=== PATIENT | male | born 1980 | race Two or more races ===

== ENCOUNTER → 2023-08-29 08:18 | Outpatient (REF) | payer BC, SELFPAY | LOC: RAD 08:18 | PROVIDERS: ATTENDING PHYSICIAN Surgery; FAMILY PHYSICIAN Family Medicine | DX: K80.50 Calculus of bile duct without cholangitis or cholecystitis without obstruction (principal) | CPT/HCPCS: 78227; A9537; J2805 ==

== ENCOUNTER 2023-09-18 06:52 | Day surgery (SDC) | payer BC, SELFPAY ==
[2023-09-18] VITALS (12 sets, daily range): BP systolic 108–148; BP diastolic 67–99; BMI 28.3
[2023-09-18] MEDS: NORMOSOL-R 1000 IV (11:20)
[2023-09-18] MEDS: IC GREEN 2.5 MG IV (11:21)
[2023-09-18] MEDS: TYLENOL 1000 MG PO (11:21)
[2023-09-18] MEDS: TRANSDERM-SCOP 1 PATCH TRANSDERM (11:37)
--- NOTE | 2023-09-18 11:48 | PTCARENOTE ---
Patients insisting that she bring in patients service dog. Service dog in bed with patient. Stone Unloader aware. Will monitor patient.
--- NOTE | 2023-09-18 12:43 | W.IMMPOSTOP ---
Surgical Immed Post Op Note
-
Primary Surgeon: Dane
Assisting: Gordo MCKEE
Pre-op Diagnosis: Biliary colic
Post-op Diagnosis: Chronic cholecystitis
Procedure Performed: Robot assisted laparoscopic cholecystectomy
Anesthesia Type: GETA
Specimen / Cultures: Gallbladder
Estimated Blood Loss: 4cc
Complications: None immediate
Operative Findings: Mildly contracted gallbladder with moderate omental adhesions, thickened wall, posterior plane obliterated by fibrosis; cystic artery: bipolar; cystic duct: locking clips; critical view obtained
--- NOTE | 2023-09-18 12:45 | OR.RPT ---
Operative Report
Operative Report
Primary Surgeon: Dane
Assisting: Gordo MCKEE
Pre-op Diagnosis: Biliary colic
Post-op Diagnosis: Chronic cholecystitis
Procedure Performed: Robot assisted laparoscopic cholecystectomy
Anesthesia Type: GETA
Specimen / Cultures: Gallbladder
Estimated Blood Loss: 4cc
Complications: None immediate
Operative Findings: Mildly contracted gallbladder with moderate omental adhesions, thickened wall, posterior plane obliterated by fibrosis; cystic artery: bipolar; cystic duct: locking clips; critical view obtained
Date of Surgery:� 09/18/23
Indications: This 42M developed right upper quadrant pain with radiation around his flank to his back. Work-up showed normal liver enzymes and no ductal dilation. No stones were identified on ultrasound or computed tomography. A HIDA scan was noted
to have a normal ejection fraction. We discussed at length the lack of definitive findings on imaging to confirm gallstones, however given how consistent his history is with biliary colic, I suspect strongly he has stones that we simply are not able
to see on imaging. We discussed that his pain may not improve after surgery if the gallbladder is not causing the pain and he verbalized understanding and agreed to proceed. Laparoscopic cholecystectomy with robotic assist was elected.
Description of procedure: The patient was placed on the operating table in the supine position. General anesthesia was induced. A time-out was completed verifying correct patient, procedure, site, positioning, and special equipment prior to
beginning this procedure. An orogastric tube was placed. The abdomen was prepped and draped in the usual sterile fashion. A stab incision was made in left upper quadrant and the Veress needle was inserted. Proper position was confirmed by aspiration
and saline meniscus test. The abdomen was insufflated with carbon dioxide to a pressure of 12mmHg. The patient tolerated insufflation well.
A 8mm trocar was then inserted above the umbilicus. The laparoscope was inserted and the abdomen inspected. No injuries from initial trocar placement or Veress needle insertion were noted. Additional 8mm trocars were then inserted in the following
locations: two in the right lower quadrant and to the left of the umbilicus and just above. The abdomen was inspected and no abnormalities were found. The table was placed in the reverse Trendelenburg position with the right side up. The dome of the
gallbladder was grasped with an atraumatic grasper and retracted over the dome of the liver. The infundibulum was then grasped with an atraumatic grasper and retracted toward the right lower quadrant. This maneuver exposed Calot�s triangle. The
peritoneum overlying the gallbladder infundibulum was then incised and the cystic duct and cystic artery identified and circumferentially dissected so that a clear view of the liver was achieved through a window between the cystic duct an cystic
artery. At this time, the only two structures going into the gallbladder were the cystic artery and cystic duct. The CBD was identified with ICG and protected.
The cystic duct was then doubly clipped and divided. The cystic artery was controlled with bipolar and divided. The gallbladder was then dissected from its peritoneal attachments by electrocautery. The gallbladder was removed using an endoscopic
retrieval bag placed through the umbilical port. The gallbladder was passed off the table as a specimen. The gallbladder fossa was closely inspected. There was no evidence of bleeding from the gallbladder fossa or cystic artery or leakage of the
bile from the cystic duct stump. The umbilical trocar site was closed at the fascial level with 2-0 PDS. Secondary trocars were removed under direct vision and noted to be hemostatic. The abdomen was allowed to collapse. The skin was closed with
subcuticular sutures of 4-0 monocryl and topical skin adhesive. The orogastric tube was removed.
The patient tolerated the procedure well and was taken to the postanesthesia care unit in stable condition.
The assistance of Gordo KEITH was required due to the complexity of the procedure. During the procedure she assisted with retraction, resection, and closure of the wound.
[2023-09-18] MEDS: DILAUDID 0.25 MG IV ×2 (13:36→13:58)
[2023-09-18] MEDS: ROXICODONE 5 MG PO (15:05)
[2023-09-18] MEDS: ZOFRAN 4 MG IV (15:41)
== END 2023-09-18 16:25 | disposition home or self-care (01) ==
LOC: SDS 06:52
PROVIDERS: ATTENDING PHYSICIAN Surgery
DX: K81.1 Chronic cholecystitis (principal)
CPT/HCPCS: 47562; 88304

== ENCOUNTER 2023-10-01 12:08 | Emergency (ER) | payer BC, SELFPAY ==
[2023-10-01 12:14] VITALS: BP 130/84
[2023-10-01] MEDS: NSS 1000 IV (13:26)
[2023-10-01] MEDS: ZOFRAN 4 MG IV (13:29)
[2023-10-01] MEDS: TORADOL 15 MG IV (13:29)
[2023-10-01 13:38] LABS: % Eosinophils 8.1 % (0-6); % Immature Granulocytes 0.2 % (0-0.5); % Lymphocytes 42.9 % (20.5-51.1); % Monocytes 5.3 % (1.7-9.3); % Neutrophils 41.5 % (42.2-75.2); Absolute Basophils 0.1 10^3/uL (0-0.2); Absolute Eosinophils 0.5 10^3/uL (0-0.7); Absolute Lymphocytes 2.6 10^3/uL (1.2-3.4); Absolute Monocytes 0.3 10^3/uL (0.1-0.6); Absolute Neutrophils 2.5 10^3/uL (1.4-6.5); Hematocrit 42.2 % (39.0-52.0); Hemoglobin 14.7 g/dL (13.0-18.0); Mean Corp Hgb Conc. 34.8 g/dL (33.0-37.0); Mean Corpuscular Hgb 27.3 pg (27.0-31.0); Mean Corpuscular Volume 78.4 fL (80.0-94.0); Mean Platelet Volume 11.7 fL (7.4-10.4); Nucleated Red Blood Cells % 0 % (-); Platelet Count 182 10^3/uL (130-400); Red Blood Cell Count 5.38 10^6/uL (4.70-6.10); Red Cell Dist. Width 12.6 % (11.5-14.5)
[2023-10-01 13:47] LABS: ALT (SGPT) 23 U/L (0-50); AST (SGOT) 20 U/L (17-59); Albumin 4.7 g/dl (3.5-5.0); Alkaline Phosphatase 80 U/L (38-126); Blood Urea Nitrogen 12 mg/dl (9-20); Calcium 10.2 mg/dl (8.4-10.2); Carbon Dioxide 27 mmol/L (22-30); Chloride 107 mmol/L (98-107); Glucose 101 mg/dl (70-99); Lipase 133 U/L (23-300); Potassium 4.5 mmol/L (3.5-5.1); Sodium 139 mmol/L (135-145); Total Bilirubin 0.4 mg/dl (0.2-1.3); Total Protein 6.9 g/dl (6.3-8.2); eGFR > 60.00
--- NOTE | 2023-10-01 13:49 | ED.GENMED ---
History of Present Illness
General
Chief Complaint: Post Operative Problem(s)
Source: patient
Exam Limitations: none
Time Seen by Provider: 10/01/23 13:00
Nursing documentation reviewed up to this point in time: agreed with
History of Present Illness
History of Present Illness:
42-year-old male with past medical history of GERD and anemia presenting to the emergency department today with concerns of ongoing abdominal discomfort over the past 2 weeks after gallbladder removal 2 weeks ago. Has noticed sweatiness subjective
fever. Feels like his stomach is boiling. Also incision site seem to be pain and uncomfortable without obvious redness or warmth
Review of Systems
Review of Systems
Allergies reviewed?: Yes
All Other Systems: ROS reviewed and negative except as documented in HPI and ROS
Phy Exam
Physical Exam
Physical Exam:
GENERAL: Alert , in no apparent distress
EYE: pupils equal and reactive
NECK: Supple, no significant adenopathy.
ENT: o/p clr, mmm.
CARDIAC: Regular rate and rhythm .
LUNGS: Clear breath sounds bilaterally, no acute respiratory distress, no wheezes/rales/rhonchi
ABDOMEN: Mild diffuse abdominal pain palpation no redness or warmth no induration or fluctuance
NEUROLOGICAL: Alert and oriented, no focal neuro deficits
SKIN: Warm and dry, skin intact.
MUSCULOSKELETAL: No edema, well perfused.
PSYCH: Normal and appropriate interaction.
Course
Orders/Labs/Results
Orders:
Orders
10/01/23 13:15
0.9% Sodium Chloride 1000 ml [Nss] 1,000 ml IV BOLUS
Ketorolac [Toradol] 15 mg IV NOW STA
Ondansetron Injectable [Zofran] 4 mg IV NOW STA
10/01/23 13:16
CT Abd/Pel (IV only)-DH only Urgent
Comment:
Reason For Exam: right abd pain
10/01/23 13:26
Complete Blood Count/With Diff Urgent
Comprehensive Metabolic Panel Urgent
Lipase Urgent
10/01/23 15:54
Urinalysis Reflex To Culture Urgent
Date Specimen was Collected: 10/01/23
Time Specimen was Collected: 15:50
Abnormal Lab Results
10/01/23
13:26
MCV 78.4 L fL
(80.0-94.0)
MPV 11.7 H fL
(7.4-10.4)
Neutrophils % 41.5 L %
(42.2-75.2)
Eosinophils % 8.1 H %
(0-6)
Glucose 101 H mg/dl
(70-99)
10/01/23 13:26
10/01/23 13:26
Vital Signs
Initial and Last Documented VS:
Initial Vital Signs
Temp Pulse Resp BP Pulse Ox
99.0 F 81 16 130/84 96
10/01/23 12:14 10/01/23 12:14 10/01/23 12:14 10/01/23 12:14 10/01/23 12:14
Last Documented Vital Signs
Temp Pulse Resp BP Pulse Ox
99.0 F 68 16 130/84 98
10/01/23 12:14 10/01/23 13:44 10/01/23 12:14 10/01/23 12:14 10/01/23 13:44
MDM/Problems Addressed
MDM/Problems Addressed:
42-year-old male presenting to the emergency department today with concerns of worsening discomfort to his abdomen over the past few days. Had gallbladder removal [address] Vela. Has had nausea no vomiting. No chest pain or shortness
of breath. Vital signs normal at arrival. Labs unremarkable no white count no urinary changes CT scan without emergent findings. No evidence of significant complication was advised for close outpatient follow-up with the surgeon otherwise stable
for discharge.
*Critical Care Note
Total Time (30-74mins, 75-104mins- exclusive of procedures): Not Applicable
ED Attending Note
-
Portions of this chart may have been created with voice recognition software.� Occasional wrong word or��sound alike� substitutions may have occurred due to the inherent limitations of voice recognition software.
Discharge Plan
Departure
Patient Disposition: Home (Routine Discharge)
Date of Disposition: 10/01/23
Time of Disposition: 17:30
Patient with high blood pressure during this ER visit?: No
Condition: Good
Covid-19: Not Applicable
Discharge Problem:
Abdominal pain
Instructions: Postoperative Pain (DC)
Prescriptions:
No Action
multivitamin Tablet
1 tab PO DAILY
ibuprofen [Advil] 200 mg Tablet
400 mg PO Q6H PRN (Reason: pain)
omeprazole
1 cap PO DAILY
Rx Instructions:
unsure of dose
oxycodone 5 mg tablet
5 - 10 mg PO Q4HPRN PRN (Reason: moderate to severe pain) Qty: 20 0RF
Referrals:
Gwendolyn Infante, DO [Family Provider] -
Activity Restrictions/Additional Instructions:
You came to the emergency department today with concerns of ongoing abdominal discomfort. Here you had a reassuring assessment. Please have close with your surgeon. Return to the emergency department any worsening, new or concerning symptoms.
Interventions
Interventions:
*Risk Screen - Suicide Last Done: 10/01/23 12:14
*General Assessment Last Done: 10/01/23 13:46
*Neglect/Abuse Screening Last Done: 10/01/23 12:14
*ED COVID-19 Vaccine History Last Done: 10/01/23 12:14
ED-Skin Assessment Last Done: 10/01/23 13:46
Discharge Date and Time
Print Language: FAROESE
[2023-10-01 16:02] LABS: Urine Albumin Negative (Neg - Trace); Urine Bilirubin Negative (Negative); Urine Character Clear (Clear); Urine Color Yellow; Urine Glucose Negative (Negative); Urine Ketone Negative (Negative); Urine Leukocyte Negative (Negative); Urine Nitrite Negative (Negative); Urine Occult Blood Negative (Negative); Urine Specific Gravity 1.015 (<1.030); Urine Urobilinogen Negative (Neg - 1+)
== END 2023-10-01 17:51 | disposition home or self-care (01) ==
LOC: EMR 12:08
PROVIDERS: Physician Assistant; EMERGENCY PHYSICIAN Emergency Medicine; FAMILY PHYSICIAN Family Medicine
DX: R10.9 Unspecified abdominal pain (principal); R11.0 Nausea; K21.9 Gastro-esophageal reflux disease without esophagitis; Z90.49 Acquired absence of other specified parts of digestive tract; Z98.890 Other specified postprocedural states
CPT/HCPCS: 99285; 96375; 96361; 96374; 74177; 80053; 81003; 83690; 85025; Q9967

== ENCOUNTER → 2024-03-19 17:21 | Outpatient (REF) | payer BC, SELFPAY | LOC: RAD 17:21 | PROVIDERS: ATTENDING PHYSICIAN Surgery; FAMILY PHYSICIAN Family Medicine | DX: R10.31 Right lower quadrant pain (principal) | CPT/HCPCS: 74177; Q9967 ==

== ENCOUNTER 2024-04-23 06:27 | Day surgery (SDC) | payer BC, SELFPAY | END 2024-04-23 10:42 | disposition home or self-care (01) | LOC: GI 06:27 | PROVIDERS: ATTENDING PHYSICIAN Internal Medicine | DX: R10.31 Right lower quadrant pain (principal); R10.11 Right upper quadrant pain; R93.3 Abnormal findings on diagnostic imaging of other parts of digestive tract; K64.8 Other hemorrhoids; K58.9 Irritable bowel syndrome, unspecified | CPT/HCPCS: 45380; 88305 ==

== ENCOUNTER → 2024-05-23 07:23 | Outpatient (REF) | payer BC, SELFPAY | LOC: RAD 07:23 | PROVIDERS: ATTENDING PHYSICIAN Family Medicine | DX: K40.20 Bilateral inguinal hernia, without obstruction or gangrene, not specified as recurrent (principal); R10.31 Right lower quadrant pain | CPT/HCPCS: 74177; Q9967 ==

== ENCOUNTER → 2024-06-28 10:11 | Outpatient (REF) | payer BC, SELFPAY | LOC: MRI 3T 10:11 | PROVIDERS: ATTENDING PHYSICIAN Internal Medicine | DX: R93.3 Abnormal findings on diagnostic imaging of other parts of digestive tract (principal); R10.31 Right lower quadrant pain; K50.80 Crohn's disease of both small and large intestine without complications | CPT/HCPCS: 72197; 74183; A9575 ==

== ENCOUNTER 2024-11-24 20:02 | Emergency (ER) | payer BC, SELFPAY ==
[2024-11-24 20:04] VITALS: BP 134/92
--- NOTE | 2024-11-24 20:59 | ED.GENMED ---
History of Present Illness
General
Chief Complaint: Abdominal Symptoms
Source: patient
Time Seen by Provider: 11/24/24 20:28
History of Present Illness
History of Present Illness:
This patient is a 43-year-old male presents emergency department with reported right lower quadrant pain that has had for a year. He has had an extensive workup with a GI specialist including MRI, colonoscopy, EGD, and capsule studies without
specific etiology isolated. In addition, he notes that in October he was noted to have increased LFTs and was told to discontinue the colchicine that he takes for MF. He does not know the specific reason for that elevation however. He states
that in addition to the usual right lower quadrant pain he also is having discomfort in the right upper quadrant. He then noted discomfort over the last couple of days it is also in the right mid back area. Last night this radiate down the back of
his right leg, but has since resolved. He denies associated numbness, tingling, incontinence, perianal anesthesia. He googled his symptoms today and is concerned that he may have peritonitis which prompted his visit here. He denies nausea,
vomiting, anorexia, fever, chills, chest pain, dyspnea, urinary symptoms, diarrhea, constipation. His last bowel movement was this morning.
Past History
Past History
ED Past Medical History: Other (FMF)
ED Past Surgical History: Cholecystectomy, Orthopedic and Urological
Social History
Tobacco: Non-smoker
Alcohol: Occasional
Drug: None
Personal:
Living: with family
Phy Exam
Physical Exam
Physical Exam:
GENERAL: Alert , in no apparent distress
EYE: pupils equal and reactive
NECK: Supple, no significant adenopathy.
ENT: o/p clr, mmm.
CARDIAC: Regular rate and rhythm .
LUNGS: Clear breath sounds bilaterally, no acute respiratory distress, no wheezes/rales/rhonchi
ABDOMEN: Soft, very mild nonspecific right sided upper middle and lower tenderness, no r/g, no cvat
NEUROLOGICAL: Alert and oriented, no focal neuro deficits
SKIN: Warm and dry, skin intact.
MUSCULOSKELETAL: No edema, well perfused.
PSYCH: Normal and appropriate interaction.
Course
Orders/Labs/Results
Orders:
Orders
11/24/24 21:00
Electrocardiogram (*1) Stat
Reason for Study: Abdominal Pain
EKG- Treatment ONCE
US Abdomen Complete/Upper Urgent
Comment:
Reason For Exam: r sided pain
11/24/24 21:15
Complete Blood Count/No Diff Urgent
Comprehensive Metabolic Panel Urgent
Lipase Urgent
11/24/24 22:10
Ketorolac [Toradol] 15 mg IV NOW STA
Abnormal Lab Results
11/24/24
21:15
MPV 11.5 H fL
(7.4-10.4)
Chloride 108 H mmol/L
(98-107)
11/24/24 21:15
11/24/24 21:15
Vital Signs
Initial and Last Documented VS:
Initial Vital Signs
Temp Pulse Resp BP
98.2 F 77 18 134/92
11/24/24 20:04 11/24/24 20:04 11/24/24 20:04 11/24/24 20:04
Last Documented Vital Signs
Temp Pulse Resp BP Pulse Ox
98.1 F 70 18 135/94 98
11/24/24 21:05 11/24/24 22:30 11/24/24 22:30 11/24/24 22:30 11/24/24 22:30
*Pulse Oximetry
Oxygen Mode of Delivery: Room air
Patient hypoxic: no
*Critical Care Note
Total Time (30-74mins, 75-104mins- exclusive of procedures): Not Applicable
Update Note
Update Note:
Patient presents to the Emergency Department with ___abdominal pain, back pain, leg pain
Number and Complexity of Problems Addressed at the Encounter
� Chronic conditions affecting care:
� Acute Exacerbation and/or Progression of Chronic Illness:
� Differential Diagnosis includes: But not limited to cholelithiasis, cholecystitis, hepatitis, appendicitis, radiculopathy, chronic abdominal pain, etc. etc.
Amount and/or Complexity of Data to be Reviewed and Analyzed
� I performed an independent evaluation of and my interpretation is:
EKG: Read by me, normal sinus rhythm, normal rate, normal axis, no acute ischemia
CT:
Xrays:
Laboratory Studies:generally unremarkable
Other:Status post cholecystectomy with no evidence for biliary ductal dilation.
Diffuse increased echogenicity of the liver with increased attenuation of the ultrasound beam, findings highly suggestive of fatty infiltration. No evidence for focal hepatic mass lesion.
Pancreas is not well-visualized, with no gross abnormality in the peripancreatic region.
� Review of other/old records reveals:
� Clinical information was obtained by an independent historian:
� Prescriptions/Medications Considered but not given:
� Further testing considered but not performed:
Risk of Complications and/or Morbidity or Mortality of Patient Management
� Social determinants of health affecting care:
� Discussion with other providers (PCP, Hospitalists, Consultants, etc):
� Escalation of care including admission/observation vs risk of discharge considered:
ED Attending Note
-
Portions of this chart may have been created with voice recognition software.� Occasional wrong word or��sound alike� substitutions may have occurred due to the inherent limitations of voice recognition software.
Discharge Plan
Departure
Patient Disposition: Home (Routine Discharge)
Date of Disposition: 11/24/24
Time of Disposition: 23:18
Patient with high blood pressure during this ER visit?: Yes
Condition: Good
Discharge Problem:
Abdominal pain
Instructions: Abdominal Pain, BLOOD PRESSURE
Prescriptions:
No Action
multivitamin Tablet
1 tab PO DAILY
ibuprofen [Advil] 200 mg Tablet
400 mg PO Q6H PRN (Reason: pain)
omeprazole
1 cap PO DAILY
Rx Instructions:
unsure of dose
oxycodone 5 mg tablet
5 - 10 mg PO Q4HPRN PRN (Reason: moderate to severe pain) Qty: 20 0RF
Referrals:
Gwendolyn Infante DO [Family Provider, Family Practice] - Next open appointment
Stand Alone Forms: Return to Work
Activity Restrictions/Additional Instructions:
PLEASE SEE ATTACHED ULTRASOUND FOR WHICH YOU NEED CLOSE FOLLOW-UP. IF YOU DEVELOP INCREASING OR NEW PAIN, FEVER, REPEATED VOMITING, BLEEDING, OR OTHER WORRISOME SIGNS, PLEASE RETURN TO THE ER IMMEDIATELY!
Interventions
Interventions:
*Risk Screen - Suicide Last Done: 11/24/24 20:04
*General Assessment Last Done: 11/24/24 20:04
*Neglect/Abuse Screening Last Done: 11/24/24 20:04
*ED- Fall Risk Assessment Last Done: 11/24/24 21:07
*ED COVID-19 Vaccine History Last Done: 11/24/24 21:07
*ED Influenza Vaccine History Last Done: 11/24/24 21:07
*Nursing Disposition Last Done: 11/24/24 23:38
QY-Qtnapm-Pcjljbfnba Assessment Last Done: 11/24/24 21:08
Discharge Date and Time
Discharge Date/Time: 11/24/24 23:39
Print Language: FRENCH
[2024-11-24 21:05] VITALS: BP 122/81
[2024-11-24 21:06] VITALS: BMI 30.1
[2024-11-24 21:23] LABS: Hematocrit 41.7 % (39.0-52.0); Hemoglobin 14.4 g/dL (13.0-18.0); Mean Corp Hgb Conc. 34.5 g/dL (33.0-37.0); Mean Corpuscular Volume 80.8 fL (80.0-94.0); Platelet Count 187 10^3/uL (130-400); Red Cell Dist. Width 12.5 % (11.5-14.5)
[2024-11-24 21:41] LABS: ALT (SGPT) 32 U/L (0-50); AST (SGOT) 22 U/L (17-59); Albumin 4.6 g/dl (3.5-5.0); Alkaline Phosphatase 82 U/L (38-126); Blood Urea Nitrogen 14 mg/dl (9-20); Calcium 9.9 mg/dl (8.4-10.2); Carbon Dioxide 25 mmol/L (22-30); Chloride 108 mmol/L (98-107); Estimated Creatinine Clearance > 125 ml/min; Glucose 98 mg/dl (70-99); Lipase 184 U/L (23-300); Potassium 4.1 mmol/L (3.5-5.1); Sodium 139 mmol/L (135-145); Total Protein 7.0 g/dl (6.3-8.2); eGFR > 60.00
[2024-11-24 22:30] VITALS: BP 135/94
[2024-11-24] MEDS: TORADOL 15 MG IV (22:31)
== END 2024-11-24 23:39 | disposition home or self-care (01) ==
LOC: EMR 20:02
PROVIDERS: EMERGENCY PHYSICIAN Emergency Medicine; FAMILY PHYSICIAN Family Medicine
DX: R10.31 Right lower quadrant pain (principal)
CPT/HCPCS: 99284; 96374; 76700; 80053; 83690; 85027; 93005